=== PATIENT | male | born 1950 | race Caucasian/White ===

== ENCOUNTER → 2017-10-30 08:55 | Outpatient (CLI) | payer MEDICARE | END | disposition home or self-care (01) | LOC: D.RAD 10-08 08:30 | DX: K31.84 Gastroparesis (principal) ==

== ENCOUNTER → 2017-12-12 12:44 | Outpatient (CLI) | payer MEDICARE | END | disposition home or self-care (01) | LOC: D.US 12:44 | DX: I65.23 Occlusion and stenosis of bilateral carotid arteries (principal) ==

== ENCOUNTER → 2017-12-23 13:55 | Outpatient (CLI) | payer MEDICARE | END | disposition home or self-care (01) | LOC: D.NM 12-13 13:30 | DX: K31.84 Gastroparesis (principal); K62.5 Hemorrhage of anus and rectum; R10.30 Lower abdominal pain, unspecified ==

== ENCOUNTER → 2017-12-26 08:12 | Outpatient (CLI) | payer MEDICARE | END | disposition home or self-care (01) | LOC: D.RAD 12-17 08:30 | DX: K31.84 Gastroparesis (principal); K62.5 Hemorrhage of anus and rectum; R10.30 Lower abdominal pain, unspecified ==

== ENCOUNTER → 2018-08-05 13:19 | Outpatient (CLI) | payer MEDICARE | END | disposition home or self-care (01) | LOC: D.US 10:00 | DX: I65.23 Occlusion and stenosis of bilateral carotid arteries (principal) ==

== ENCOUNTER → 2019-03-16 13:04 | Outpatient (CLI) | payer MEDICARE | END | disposition home or self-care (01) | LOC: D.CT 13:04 | PROVIDERS: ATTEND Internal Medicine Cardiovascular Disease | DX: I65.21 Occlusion and stenosis of right carotid artery (principal) ==

== ENCOUNTER → 2020-05-11 13:17 | Outpatient (CLI) | payer MEDICARE | END | disposition home or self-care (01) | LOC: D.US 03-09 11:30 | PROVIDERS: ATTEND Internal Medicine Cardiovascular Disease | DX: I65.23 Occlusion and stenosis of bilateral carotid arteries (principal) ==

== ENCOUNTER → 2021-05-01 15:08 | Outpatient (CLI) | payer MEDICARE | END | disposition home or self-care (01) | LOC: D.US 15:00 | PROVIDERS: ATTEND Internal Medicine Cardiovascular Disease | DX: I65.23 Occlusion and stenosis of bilateral carotid arteries (principal) ==